=== PATIENT | female | born 1975 | race Caucasian/White ===

== ENCOUNTER 2018-11-19 07:00 | Day surgery (SDC) | payer OTHER ==
[~2018-11-19] VITALS: Ht 165.1 cm; Wt 73.6 kg
[~2018-11-19 07:00] MED LIST: LUBI24CA2 PO; PRED10 PO; RANI150T7 PO; SODIUM CHLORIDE 0.9% 1,000 ML IV ONE
[2018-11-19] MEDS ORDERED: ALBUTEROL SULFATE 2.5 MG/0.5 ML NEB SOLUTION NEB ONE (07:01)
[2018-11-19] MEDS ORDERED: LIDOCAINE 4% 50 ML SOLUTION TP ONE (07:01)
[2018-11-19] MEDS ORDERED: BENZOCAINE 20% 50 MCG/SPRAY 57 GM TP ONE (07:01)
[2018-11-19] MEDS ORDERED: LIDOCAINE 2% 30 ML JELLY TP ONE (07:01)
[2018-11-19] MEDS ORDERED: MIDAZOLAM HCL 2 MG/2 ML VIAL ONE (07:31)
[2018-11-19] MEDS ORDERED: FentaNYL CITRATE-PF 100 MCG/2 ML VIAL ONE (07:31)
[2018-11-19] MEDS ORDERED: MethylPREDNISolone SOD SUCC 125 MG/2 ML VIAL IVP ONE (09:15)
[2018-11-19] MEDS ORDERED: OXYGEN THERAPY IH SCH (20:00)
== END 2018-11-19 10:10 | disposition home or self-care (01) ==
LOC: SURGERY 07:00
PROVIDERS: ATTEND Internal Medicine Critical Care Medicine
DX: J38.4 Edema of larynx (principal); B37.0 Candidal stomatitis; Z88.0 Allergy status to penicillin; Z91.013 Allergy to seafood; Z87.891 Personal history of nicotine dependence; Z72.89 Other problems related to lifestyle; Z98.890 Other specified postprocedural states; Z90.81 Acquired absence of spleen; Z98.51 Tubal ligation status
CPT/HCPCS: 31623; 31624; 71045; 84703; 87015; 87070; 87101; 87205; 87206; 87220; 88108; 88312; J2250; J2930; J3010; J7030